=== PATIENT | female | born 1950 | race Caucasian/White ===

== ENCOUNTER 2022-10-01 21:18 | Inpatient (IN) | payer OTHER ==
[~2022-10-01] VITALS: Ht 152.4 cm; Wt 50.6 kg
[2022-10-01] MEDS ORDERED: IPRATROPIUM BROM 0.5 MG/2.5ML INH SOL NEB ONE (21:30)
[2022-10-01] MEDS ORDERED: methylPREDNISolone SOD SUCC 125 MG/2 ML VL IV ONE (21:30)
[2022-10-01] MEDS ORDERED: ALBUTEROL SULF 2.5 MG/0.5ML(0.5%) NEB SOLN NEB ONE (21:30)
[2022-10-01] MEDS ORDERED: TERBUTALINE SULFATE 1 MG/ML 1ML VIAL SC ONE (21:45)
[2022-10-01 22:01] LABS: Basophils # (auto) 0.2 10 ^3/uL (0-0.2); Basophils % (auto) 1.8 % (0.0-2.0); Eosinophils # (auto) 0.1 10 ^3/uL (0-0.8); Eosinophils % (auto) 0.7 % (0.0-7.0); Hemoglobin 13.5 g/dL (12.2-16.2); Lymphocytes % (auto) 23.1 % (10.0-50.0); Mean Corpuscular Hemoglobin 32.7 pg (28.0-32.0); Mean Corpuscular Hgb Conc. 34.7 g/dL (32.0-36.0); Mean Corpuscular Volume 94.3 fL (80.0-100.0); Monocytes # (auto) 0.6 10 ^3/uL (0-1.3); Monocytes % (auto) 6.9 % (0.0-12.0); Neutrophils # (auto) 5.9 10 ^3/uL (1.6-8.6); Neutrophils % (auto) 67.5 % (37.0-80.0); Nucleated Red Blood Cells % 0.1 %; Red Blood Cells 4.14 10^6/uL (4.0-5.20); Red Cell Distribution Width 13.6 % (11.8-14.3); White Blood Cell 8.7 10^3/uL (4.4-10.8)
[2022-10-01 22:22] LABS: Albumin 3.6 g/dL (3.4-5.0); BUN/Creatinine Ratio 10.9 (10.0-20.0); Potassium 4.8 mmol/L (3.5-5.1)
[2022-10-01 22:26] LABS: Bilirubin, Total 0.5 mg/dL (0.2-1.0)
[2022-10-01] MEDS ORDERED: IOHEXOL 350 MG/ML 100ML IJ ONE (22:35)
[2022-10-01] MEDS ORDERED: MIDAZOLAM HCL 2MG/2ML 2ml VIAL (1mg/ml) IV ONE (22:45)
[2022-10-01] MEDS: MAGNESIUM SULFATE 1GM/100ML 100 ML IV SCH (22:54)
[2022-10-01 23:43] VITALS: BP 146/69
[2022-10-01] MEDS ORDERED: cefTRIAXone 1GM/50ML D5W 50 ML IV ONE (23:45)
[2022-10-01] MEDS ORDERED: FUROSEMIDE 20 MG/2 ML VIAL IV ONE (23:45)
[2022-10-01] MEDS ORDERED: AZITHROMYCIN 500MG/ 250ML 250 ML IV ONE (23:45)
[2022-10-02] MEDS: MAGNESIUM SULFATE 1GM/100ML 100 ML IV SCH (00:09)
[2022-10-02] MEDS ORDERED: ONDANSETRON HCL 4 MG/2 ML VIAL IV PRN (00:30)
[2022-10-02] MEDS ORDERED: MORPHINE SULFATE INJ 2 MG/ml SYRG IV PRN (00:30)
[2022-10-02] MEDS ORDERED: NITROGLYCERIN 0.4 MG SL TAB SL PRN (00:30)
[2022-10-02] MEDS ORDERED: ACETAMINOPHEN 325 MG TAB PO PRN (00:30)
[2022-10-02] MEDS: ALBUTEROL SULF 2.5 MG/0.5ML(0.5%) NEB SOLN NEB PRN ×2 (00:46→16:01)
[2022-10-02 01:30] LABS: Urine Bacteria NONE SEEN /hpf (None Seen); Urine Blood Negative /uL (Negative); Urine WBC 2 /hpf (0 - 5)
[2022-10-02 01:51] LABS: Urine Specific Gravity > 1.050 (1.001-1.035)
[2022-10-02] MEDS: FUROSEMIDE 20 MG/2 ML VIAL IV SCH ×2 (06:43→18:16)
[2022-10-02] MEDS: ASPirin 81 mg TAB PO SCH (09:42)
[2022-10-02] MEDS: CARVEDILOL 3.125 MG TAB PO SCH ×2 (09:45→23:18)
[2022-10-02] MEDS: LISINOPRIL 10 MG TAB PO SCH (09:46)
[2022-10-02] MEDS: ENOXAPARIN SOD 40 MG/0.4 ML SYRINGE SC SCH (09:47)
[2022-10-02] MEDS ORDERED: PANTOPRAZOLE 40 MG TAB PO SCH (10:00)
[2022-10-02] MEDS ORDERED: guaiFENesin-DM 100/10mg/5ml SYR PO PRN (18:00)
[2022-10-02] MEDS: ATORVASTATIN 20 MG TAB PO SCH (23:17)
[2022-10-02] MEDS: TEMAZEPAM 15 MG CAP PO PRN (23:32)
[2022-10-03 00:36] VITALS: BP 121/57
[2022-10-03 05:00] VITALS: BP 101/49
[2022-10-03] MEDS: FUROSEMIDE 20 MG/2 ML VIAL IV SCH ×2 (05:57→19:00)
[2022-10-03 06:14] LABS: Basophils # (auto) 0 10 ^3/uL (0-0.2); Basophils % (auto) 0.3 % (0.0-2.0); Eosinophils # (auto) 0 10 ^3/uL (0-0.8); Hematocrit 35.5 % (36.0-46.0); Hemoglobin 12.3 g/dL (12.2-16.2); Lymphocytes # (auto) 0.7 10 ^3/uL (0.4-5.4); Lymphocytes % (auto) 7.5 % (10.0-50.0); Mean Corpuscular Hemoglobin 33.3 pg (28.0-32.0); Mean Corpuscular Hgb Conc. 34.8 g/dL (32.0-36.0); Mean Corpuscular Volume 95.8 fL (80.0-100.0); Monocytes # (auto) 0.7 10 ^3/uL (0-1.3); Monocytes % (auto) 7.6 % (0.0-12.0); Neutrophils # (auto) 7.8 10 ^3/uL (1.6-8.6); Neutrophils % (auto) 84.6 % (37.0-80.0); Red Cell Distribution Width 13.4 % (11.8-14.3); White Blood Cell 9.3 10^3/uL (4.4-10.8)
[2022-10-03 06:38] LABS: Potassium 4.3 mmol/L (3.5-5.1)
[2022-10-03 06:52] LABS: BUN/Creatinine Ratio 17.2 (10.0-20.0); Bilirubin, Total 0.4 mg/dL (0.2-1.0); Calcium 8.7 mg/dL (8.5-10.1); Total Protein 5.9 g/dL (6.4-8.2)
[2022-10-03 09:00] VITALS: BP 139/61
[2022-10-03] MEDS ORDERED: FLUT1AER13 IN (09:38)
[2022-10-03] MEDS ORDERED: BENZ100C19 PO (09:38)
[2022-10-03] MEDS ORDERED: IBUP400T22 PO (09:38)
[2022-10-03] MEDS ORDERED: ACET-1156 PO (09:38)
[2022-10-03] MEDS ORDERED: HYDR-4902 PO (09:38)
[2022-10-03] MEDS ORDERED: ALPR0.5T PO (09:38)
[2022-10-03] MEDS ORDERED: AMIO200T33 PO (09:38)
[2022-10-03] MEDS ORDERED: APIX5TAB PO (09:38)
[2022-10-03] MEDS ORDERED: FURO20TA3 PO (09:38)
[2022-10-03] MEDS ORDERED: POTA10TA51 PO (09:38)
[2022-10-03] MEDS ORDERED: ALBU0.084 NEB (09:38)
[2022-10-03] MEDS ORDERED: TIOT17SP IN (09:38)
[2022-10-03] MEDS: ASPirin 81 mg TAB PO SCH (11:20)
[2022-10-03] MEDS: ENOXAPARIN SOD 40 MG/0.4 ML SYRINGE SC SCH (11:20)
[2022-10-03] MEDS: CARVEDILOL 3.125 MG TAB PO SCH ×2 (11:21→21:05)
[2022-10-03] MEDS: LISINOPRIL 10 MG TAB PO SCH (11:21)
[2022-10-03 13:00] VITALS: BP 112/67
[2022-10-03 17:00] VITALS: BP 153/70
[2022-10-03] MEDS ORDERED: ALPRAZolam 0.5 MG TAB PO PRN (18:15)
[2022-10-03] MEDS: AMIODARONE HCL 200 MG TAB PO SCH (19:00)
[2022-10-03 20:00] VITALS: BP 113/54
[2022-10-03] MEDS: ATORVASTATIN 20 MG TAB PO SCH (21:04)
[2022-10-03] MEDS: APIXABAN 5 MG TAB PO SCH (21:04)
[2022-10-03] MEDS: TEMAZEPAM 15 MG CAP PO PRN (23:00)
[2022-10-04] MEDS: FUROSEMIDE 20 MG/2 ML VIAL IV SCH ×2 (05:30→18:40)
[2022-10-04 06:11] LABS: Calcium 8.5 mg/dL (8.5-10.1); Potassium 4.5 mmol/L (3.5-5.1)
[2022-10-04 06:14] LABS: BUN/Creatinine Ratio 24.7 (10.0-20.0)
[2022-10-04] MEDS: AMIODARONE HCL 200 MG TAB PO SCH (09:35)
[2022-10-04] MEDS: CARVEDILOL 3.125 MG TAB PO SCH ×2 (09:36→21:32)
[2022-10-04] MEDS: LISINOPRIL 10 MG TAB PO SCH (09:36)
[2022-10-04] MEDS: APIXABAN 5 MG TAB PO SCH ×2 (09:36→21:31)
[2022-10-04 12:04] VITALS: BP 124/59
[2022-10-04] MEDS ORDERED: FUROSEMIDE 20 MG/2 ML VIAL IV ONE (12:30)
[2022-10-04 16:35] VITALS: BP 117/49
[2022-10-04] MEDS: ATORVASTATIN 20 MG TAB PO SCH (21:31)
[2022-10-04] MEDS: TEMAZEPAM 15 MG CAP PO PRN (21:33)
[2022-10-04 22:00] VITALS: BP 131/54
[2022-10-05 01:02] VITALS: BP 117/49
[2022-10-05] MEDS: ALPRAZolam 0.5 MG TAB PO PRN (03:02)
[2022-10-05 05:04] VITALS: BP 108/51
[2022-10-05] MEDS: FUROSEMIDE 20 MG/2 ML VIAL IV SCH (06:57)
[2022-10-05 07:30] LABS: Potassium 3.6 mmol/L (3.5-5.1)
[2022-10-05 07:39] LABS: BUN/Creatinine Ratio 29.1 (10.0-20.0); Calcium 8.2 mg/dL (8.5-10.1)
[2022-10-05 09:00] VITALS: BP 114/48
[2022-10-05] MEDS: APIXABAN 5 MG TAB PO SCH ×2 (10:25→21:42)
[2022-10-05] MEDS: LISINOPRIL 10 MG TAB PO SCH (10:25)
[2022-10-05] MEDS: AMIODARONE HCL 200 MG TAB PO SCH (10:25)
[2022-10-05] MEDS: CARVEDILOL 3.125 MG TAB PO SCH ×2 (10:30→21:36)
[2022-10-05 13:00] VITALS: BP 111/54
[2022-10-05 17:00] VITALS: BP 129/63
[2022-10-05] MEDS: TEMAZEPAM 15 MG CAP PO PRN (21:40)
[2022-10-05] MEDS: ATORVASTATIN 20 MG TAB PO SCH (21:41)
[2022-10-05 22:00] VITALS: BP 155/64
[2022-10-06] MEDS: ALPRAZolam 0.5 MG TAB PO PRN (00:46)
[2022-10-06] MEDS: FUROSEMIDE 20 MG/2 ML VIAL IV SCH (06:00)
[2022-10-06] MEDS: LISINOPRIL 10 MG TAB PO SCH (09:06)
[2022-10-06] MEDS: CARVEDILOL 3.125 MG TAB PO SCH (09:06)
[2022-10-06] MEDS: APIXABAN 5 MG TAB PO SCH (09:06)
[2022-10-06] MEDS: AMIODARONE HCL 200 MG TAB PO SCH (09:07)
[2022-10-06 09:30] VITALS: BP 150/56
[2022-10-06 12:51] VITALS: BP 146/63
[2022-10-06 14:12] VITALS: BP 146/63
== END 2022-10-06 15:00 | disposition home or self-care (01) | DRG 291 ==
LOC: ER 21:18 → TELE 10-02 00:21 → TELE-WESTW 10-02 23:34
PROVIDERS: ADMIT Nurse Practitioner; ATTEND Internal Medicine
PROC: 5A09357 Assistance with Respiratory Ventilation, Less than 24 Consecutive Hours, Continuous Positive Airway Pressure (ICD-10-PCS; principal; 2022-10-01)
DX: I50.43 Acute on chronic combined systolic (congestive) and diastolic (congestive) heart failure (principal); J96.21 Acute and chronic respiratory failure with hypoxia; E87.1 Hypo-osmolality and hyponatremia; J44.1 Chronic obstructive pulmonary disease with (acute) exacerbation; D68.69 Other thrombophilia; I48.91 Unspecified atrial fibrillation; Z20.822 Contact with and (suspected) exposure to COVID-19; Z86.79 Personal history of other diseases of the circulatory system; Z91.119 Patient's noncompliance with dietary regimen due to unspecified reason
CPT/HCPCS: 36415; 36600; 71045; 71260; 74177; 80048; 80053; 81001; 82805; 83880; 84484; 85025; 87426; 93005; 93306; 94640; 94660; 96365; 96366; 96372; 96375; 97110; 97116; 97163; 97530; 99291; G0378; J0696; J2250